=== PATIENT | male | born 1990 | race Caucasian/White ===

== ENCOUNTER 2020-01-16 15:30 | Outpatient (CLI) | payer OTHER ==
[2020-01-16] MEDS ORDERED: GADOBUTROL 10 MMOL/10 ML VIAL ONE (15:49)
[2020-01-16] MEDS ORDERED: GADOBUTROL 10 MMOL/10 ML VIAL IVP ONE (16:46)
--- NOTE | 2020-01-17 09:14 | MRI Report ---
Reason: SWELLING, MASS, LUMP, RT UPPER LIMB Procedure Date: 01/16/2020 Accession Number: [id number] / [id number] Procedure: MRI - Elbow RT W/WO CPT Code: Final Report FULL RESULT: EXAM: RIGHT ELBOW MRI WITHOUT AND WITH CONTRAST EXAM DATE: 01/16/2020 05:07 PM. CLINICAL HISTORY: Swelling, mass, lump, right upper limb. COMPARISON: None. TECHNIQUE: Multiplanar, multisequence T1-weighted and fluid-sensitive sequences of the elbow before and after administration of intravenous contrast. IV contrast: 10m mL Gadavist. Other: None. FINDINGS: Bones: No fractures or subluxations. No marrow edema or abnormal enhancement. No bone lesions. Articular Cartilage: Mild chondromalacia capitellum. Ligaments: The ulnar collateral, lateral ulnar collateral, radial collateral, and annular ligaments are intact. Tendons: The common flexor and extensor tendons are unremarkable. The distal biceps, brachialis, and triceps tendons are unremarkable. Musculature: No edema or fatty atrophy. Other: The cubital tunnel and ulnar nerve are unremarkable. At the posterior radial elbow radial aspect of the radial head and radial aspect of the anconeus muscle is a ganglion cyst 1.1 x 1.7 cm in the transverse dimension and 3.1 cm in length (image 9 series 1001 and image 17 series 801). Mild increased elbow joint fluid. At the posterior aspect radial head capitellum articulation is capsular thickening, meniscus homolog and a possible 4 mm osseous body dorsal aspect of the radial head capitellum joint marginated by fluid (image 8 series 1301 and image 25 series 1201). IMPRESSION: 1. At the dorsal radial aspect of the elbow radial head capitellum articulation is a ganglion cyst 1.1 x 1.7 cm in transverse dimension and 3.1 cm in length radial aspect anconeus muscle. 2. Mild increased fluid elbow joint. 3. Question 4 mm osseous body dorsal aspect radial head capitellum articulation (image 18 series 1401). Correlate with 4 view elbow x-ray series. [facility]
== END 2020-01-16 15:31 | disposition home or self-care (01) ==
LOC: DI 15:30
PROVIDERS: ATTEND Orthopaedic Surgery
DX: M67.421 Ganglion, right elbow (principal); R93.6 Abnormal findings on diagnostic imaging of limbs; M25.421 Effusion, right elbow
CPT/HCPCS: 73223; A9585

== ENCOUNTER 2024-02-21 16:56 | Emergency (ER) | payer OTHER ==
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
[2024-02-21] MEDS: BACITRACIN ZINC OINT 1 PACKET TOP STA (17:28)
--- NOTE | 2024-02-21 17:35 | CT Report ---
PROCEDURE: Head WO INDICATIONS: head inj TECHNIQUE: Noncontrast 4.5 mm thick angled axial sections acquired from the foramen magnum to the vertex. For r adiation dose reduction, the following was used: automated exposure control, adjustment of mA and/or kV according to patient size. COMPARISON: None. FINDINGS: Image quality: Excellent. CSF spaces: Basal cisterns are patent. No extra-axial fluid collections. Ventricles are normal in size and shape. Brain: No midline shift. No intracranial masses or hemorrhage. Caldwell-white matter interface is norm al. Skull and face: Left periorbital hematoma. No underlying fracture. Calvarium and visualized facial b ones are intact, without suspicious lesions. Sinuses: Visualized sinuses and mastoids are clear. IMPRESSION: No acute intracranial pathology. Left periorbital hematoma without underlying fracture. Reviewed by: Buddy Chahal MD on 02/21/2024 4:34 PM DYLAN Approved by: Buddy Chahal MD on 02/21/2024 4:34 PM DYLAN Station ID: [id number]
[2024-02-21 18:16] VITALS: BP 138/79; O2SAT 99
== END 2024-02-21 18:10 | disposition home or self-care (01) ==
LOC: ED 16:56
DX: S06.9X9A Unspecified intracranial injury with loss of consciousness of unspecified duration, initial encounter (principal); S00.83XA Contusion of other part of head, initial encounter; S80.212A Abrasion, left knee, initial encounter; S60.511A Abrasion of right hand, initial encounter; V19.9XXA Pedal cyclist (driver) (passenger) injured in unspecified traffic accident, initial encounter; I10 Essential (primary) hypertension; E78.00 Pure hypercholesterolemia, unspecified
CPT/HCPCS: 70450; 99283; 99284; A9270